=== PATIENT | male | born 1955 ===

== ENCOUNTER 2022-11-24 00:35 | Emergency (ER) | payer OTHER ==
--- OUTSIDE RECORDS SUMMARY | 2022-11-24 00:39 | XMS REPORT | Continuity of Care Document ---
:[address] [facility] t Address [address] [place] [address] [place] [id number] Care Team Providers Name Role Phone Elpidio Rodgers Primary Care Physician LOGAN POOL Attending Clinician Unavailable Doctor Unassigned, [place] Attending Clinician Unavailable GUIDO STYLES Attending Clinician Unavailable Payers Payer Name Policy Type Policy Number Effective Date Expiration Date Boni thomason [employer] MANAGED [id number] 2022 MEDICARE PPO-CLAIRE 00:00:00 [employer]ET[employer] HMO [id number] 2009 2020 00:00:00 00:00:00 Problems Condition Condition Condition Status Onset Resolution Last Treating Co mments Source Name Details Category Date Date Treatment Clinician Date Benign Benign Disease Active 2018-04 Univers prostatic prostatic 0-02 ity [place] with 00 Medical urinary urinary Branch frequency frequency Elevated Elevated Disease Active 2018-04 Unive rs PSA PSA 0-02 ity of 00:00: [place] 00 Medical Branch Allergies, Adverse Reactions, Alerts Allergy Allergy Status Severity Reaction(s) Onset Inactive Treating Comm ents Source Name Type Date Date Clinician AMOXICIL DRUG Active Rash Univers PA-POT 8- ity of CLAVULAN 00:00: [place] ATE 00 Medical Branch DOXYCYCL DRUG Active Unknown-Cmnt Un luisa INE INGREDI 8 ity of 00:00: [place] 00 Medical Branch Amoxicil Propensi Active Rash Rash and Univ ers pa-Pot ty to 8 headaches ity of Clavulan adverse 00:00: [place] ate reaction 00 [facility] [place] Doxycycl Propensi Active Unknown - 2015- Headaches Univers ine ty to See comments 12-05 ity of adverse 00:00: [place] reaction 00 [facility] Social History Social Habit Start Date Stop Date Quantity Comments Source Gender identity Universit y of [facility] Sexual orientation Univer sity [facility] Tobacco use and 2022-07-27 2022-07-27 Smokeless Universit y of exposure 00:00:00 00:00:00 tobacco non-user [facility] Alcohol intake 2022-07-27 2022-07-27 Ex-drinker [facility] 00:00:00 00:00:00 (finding) [facility] History of Social 2019-11-16 2019-11-16 Univers ity of function 00:00:00 00:00:00 [facility] Sex Ass[birth year] Universit y of 00:00:00 00:00:00 [facility] Smoking Status Start Date Stop Date Source Never smoked tobacco [facility] Medications Ordered Filled Start Stop Current Ordering Indication Dosage Frequency Signature Comments Components Source Medication Medication Date Date Medication? Clinician (SIG) Name Name Silodosin Yes 4mg Take 4 mg Uni vers (RAPAFLO) 4 4-13 by mouth ity of mg Cap 00:00: in the [place] 00 morning. Medical Branch rosuvastati Yes 10mg Take 1 Univ ers n 10 mg 2-24 tablet by ity of tablet 00:00: mouth at [place] 00 bedtime. Medical Branch betamethaso Yes MUNA EXT TO Univers ne 8-13 RASH 1 TO ity of dipropionat 00:00[place] 2 [place] 0.05 % 00 Medical cream Branch betamethaso Yes MUNA EXT TO Univers ne 8-13 RASH 1 TO ity of dipropionat 00:00[place] 2 [place] 0.05 % 00 [facility] cream Branch Immunizations Ordered Filled Immunization Date Status Comments Sourc e Immunization Name Name SARS-COV-2 COVID-19 2020-06-25 Completed Unive rsity of PFIZER VACCINE 00:00:00 [facility] SARS-COV-2 COVID-19 2020-06-25 Completed Unive rsity of PFIZER VACCINE 00:00:00 [facility] SARS-COV-2 COVID-19 2020-06-03 Completed Unive rsity of PFIZER VACCINE 00:00:00 [facility] SARS-COV-2 COVID-19 2020-06-03 Completed Unive rsity of PFIZER VACCINE 00:00:00 [facility] Procedures Procedure Date / Time Performing Clinician Source Performed INSURANCE CORRESPONDENCE 2022-10-19 05:01:00 Doctor Kofi, [facility] Name [facility] PATIENT QUESTIONNAIRE 2022-07-17 05:01:00 Doctor Kofi, [facility] Encounters Start End Encounter Admission Attending Care Care Encounter Source Date/Time Date/Time Type Type Clinicians Facility Department ID 2022-12-10 2022-12-10 Outpatient LOGAN HARDING [facility] [id number] Univers 00:00:00 00:00:00 ity [facility] 2022-12-09 2022-12-09 Outpatient LOGAN HARDING [facility] [id number] Univers 00:00:00 00:00:00 ity [facility] 2022-10-20 2022-10-20 Outpatient R [facility] [id number] Univers 00:00:00 00:00:00 ity [facility] 2022-10-19 2022-10-19 Orders Doctor RAND [id number] Univers 00:00:00 00:00:00 Only Unassigned, [place] [id number] ity [facility] [id number] Attila as [id number] [address] 2022-10-14 2022-10-14 Outpatient LOGAN HARDING [facility] [id number] Univers 00:00:00 00:00:00 ity [facility] 2022-10-14 2022-10-14 Outpatient LOGAN HARDING [facility] [id number] Univers 00:00:00 00:00:00 ity [facility] 2022-07-23 2022-07-23 Outpatient LOGAN HARDING [facility] [id number] Univers 07:51:46 13:54:08 ity [facility] 2022-07-17 2022-07-17 Orders Doctor KEYONA [id number] Univers 00:00:00 00:00:00 Only Unassigned, OUSMANE [id number] ity of [place] [facility] [id number] Attila as [phone] [address] 2020-06-24 2020-06-24 Outpatient [facility] [id number] Univers 09:10:00 09:10:00 [id number] ity [facility] 2020-06-24 2020-06-24 Outpatient [facility] [id number] Univers 09:10:00 09:10:00 GUIDO [facility] 2020-06-03 2020-06-03 Outpatient [facility] [id number] Univers 08:40:00 08:40:00 [id number] [facility] 2020-06-03 2020-06-03 Outpatient [facility] [id number] Univers 08:40:00 08:40:00 GUIDO [facility] Results This patient has no known results.
[2022-11-24 02:21] LABS: Absolute Lymphocytes (CBC) 1.8 K/uL (0.7-4.9); Hematocrit 44.3 % (39.6-49.0); Lymphocytes % 19.6 % (15.3-44.8); MCV 94.4 fL (80-100); MPV 8.7 fL (7.6-11.3); Platelets 186 thou/uL (152-406); Protime INR 1.01; RBC Red Blood Cell Count 4.69 M/uL (4.33-5.43)
[2022-11-24] MEDS ORDERED: MORPHINE 4 MG/ML SYR ONE ×2 (02:30→03:09)
[2022-11-24] MEDS ORDERED: ONDANSETRON 4 MG/2 ML VIAL ONE ×2 (02:30→03:09)
[2022-11-24] MEDS ORDERED: FAMOTIDINE 20 MG/2 ML VIAL IV ONE (02:30)
[2022-11-24] MEDS ORDERED: PANTOPRAZOLE 40 MG INJ ONE (02:30)
[2022-11-24] MEDS ORDERED: NA CHLORIDE 0.9% 1,000 ML ONE (02:31)
[2022-11-24] MEDS ORDERED: TENECTEPLASE 50 MG/10 ML VIAL IV ONE (03:28)
[2022-11-24] MEDS ORDERED: ASPIRIN 81 MG CHEWABLE TABLET ONE (03:37)
[2022-11-24 03:39] LABS: ALT/SGPT 23 U/L (16-61); AST/SGOT 21 U/L (15-37); Albumin 3.6 g/dL (3.4-5.0); Alkaline Phosphatase 55 U/L (45-117); BUN Blood Urea Nitrogen 14 mg/dL (7-18); Bicarbonate 26 mEq/L (21-32); Bilirubin Total 0.5 mg/dL (0.2-1.0); Glomerular Filtration Rate 91 ml/min (=/>90); Glucose Level 128 mg/dL (74-106); Lipase 34 U/L (13-75); Potassium 3.4 mEq/L (3.5-5.1); Protein, Total 6.5 g/dL (6.4-8.2); Sodium Level 139 mEq/L (136-145)
[2022-11-24 03:41] LABS: Bilirubin Direct < 0.1 mg/dL (0-0.2)
[2022-11-24 03:42] LABS: Bilirubin Indirect, Calculated ND mg/dL (0.2-0.8)
[2022-11-24] MEDS ORDERED: HEPARIN 5000 UNIT/ML 1 ML VIAL ONE (03:42)
--- NOTE | 2022-11-24 03:42 | EDPHYS ---
Physician Documentation [facility] Name: Jose Aaron Age: 67 yrs Sex: Male : 1955 Arrival Date: 11/24/2022 Time: 00:35 Bed 4 Private MD: ED Physician Raimundo Tomas HPI: 11/24 00:46 This 67 yrs old Male presents to ER via Unassigned with complaints of Back sp4 Pain. 03:00 61-year-old male with past medical history of hyperlipidemia presents with 1 week daily sp4 chest pain with radiation to the back also upper back pain in relationship to his chest pain. Patient denied exertional chest pain and shortness of breath. But reported that he has associated nausea and dry heaving. Patient denied postprandial pain denied acid reflux. Primary care physician is Dr. Ana Maria Magallanes . Patient does not have history of prior stents or other cardiac problems. Historical: - Allergies: 02:45 Augmentin; vc1 02:45 Doxycycline; vc1 02:45 red wasps; vc1 - PMHx: 02:45 Hyperlipidemia; vc1 - PSHx: 02:45 None; vc1 - Immunization history:: Client reports receiving the 2nd dose of the Covid vaccine. - Social history:: Smoking status: Patient denies any tobacco usage or history of. - Family history:: not pertinent. ROS: 03:00 Constitutional: Negative for fever, chills, and weight loss, Eyes: Negative for injury, sp4 pain, redness, and discharge, Cardiovascular: Negative for palpitations, and edema, positive for chest pain with radiation to the back Back: Positive for upper back pain with radiation into the chest 03:00 All other systems are negative. Exam: 03:00 Constitutional: This is a well developed, well nourished patient who is awake, alert, sp4 and in no acute distress. Uncomfortable appearing male but nontoxic Head/Face: Normocephalic, atraumatic. Eyes: Pupils equal round and reactive to light, extra-ocular motions intact. Lids and lashes normal. Conjunctiva and sclera are not injected. Cornea within normal limits. Periorbital areas with no swelling, redness, or edema. ENT: Nares patent. No nasal discharge, no septal abnormalities noted. Tympanic membranes are normal and external auditory canals are clear. Oropharynx with no redness, swelling, or masses, exudates, or evidence of obstruction, uvula midline. Mucous membranes moist. Neck: Trachea midline, no thyromegaly or masses palpated, and no cervical lymphadenopathy. Supple, full range of motion without nuchal rigidity, or vertebral point tenderness. Chest/axilla: Normal chest wall appearance and motion. Nontender with no deformity. No lesions are appreciated. Cardiovascular: Regular rate and rhythm with a normal S1 and S2. No gallops, murmurs, or rubs. Normal PMI, no JVD. No pulse deficits. Respiratory: Lungs have equal breath sounds bilaterally, clear to auscultation and percussion. No rales, rhonchi or wheezes noted. No increased work of breathing, no retractions or nasal flaring. Abdomen/GI: Soft, non-tender, with normal bowel sounds. No distension or tympany. No guarding or rebound. No evidence of tenderness throughout. Back: No spinal tenderness. No costovertebral tenderness. Skin: Warm, dry with normal turgor. Normal color with no rashes, no lesions, and no evidence of cellulitis. MS/ Extremity: Pulses equal, no cyanosis. Neurovascular intact. Full, normal range of motion. Neuro: Awake and alert, GCS 15, oriented to person, place, time, and situation. Cranial nerves II-XII grossly intact. Motor strength 5/5 in all extremities. Sensory grossly intact. Psych: Awake, alert, with orientation to person, place and time. Behavior, mood, and affect are within normal limits 03:00 ECG was reviewed by the Attending Physician. EKG time 0 145, there is normal sinus sp4 rhythm at rate of 71, no ST depression, there is inverted T waves in leads III and aVF, there is [address] elevation in V2 but no contiguous ST elevations, there is no ectopy, normal intervals 03:17 Repeat EKG at 0 312 -sinus rhythm at 72 bpm, ST depression leads III and aVF, ST sp4 elevation V2 and V3 indicative of septal to anterior UT. No ectopy, normal intervals, normal axis Vital Signs: 02:01 BP 133 / 96; Pulse 72; Resp 19; Temp 98.6(O); Pulse Ox 99% on R/A; Weight 86.18 kg; rv1 Height 5 ft. 9 in. ; Pain 10/10; 03:21 Weight 85.8 kg; vc1 03:28 BP 150 / 104; Pulse 94; Resp 19; Pulse Ox 94% on R/A; kl 03:28 Pain 8/10; kl 03:21 Body Mass Index 27.93 (85.80 kg, 175.26 cm) vc1 02:01 Pain Scale: Adult rv1 03:28 Pain Scale: Adult kl MDM: 02:57 Patient medically screened. sp4 03:37 Differential diagnosis: Abdominal Aortic Aneurysm Cholelithiasis chronic back pain, sp4 Neoplasm Osteoporosis Peptic Ulcer spinal injury, sprain. Data reviewed: vital signs, nurses notes, old medical records, lab test result(s), amylase and lipase, cardiac enzymes, CBC, electrolytes, hepatic panel, urinalysis, EKG, radiologic studies, plain films. 03:39 Consideration of Admission/Observation Escalation of care including sp4 admission/observation considered. Management of patient was discussed with the following: Administrative Professional: Osmar DONAHUE with cardiology -radiation safety officer has accepted patient to [facility]. ED course: Patient initial EKG revealed suspicion for evolving heart attack with ST elevation in V2, patient repeat EKG revealed ST elevation in V2 V3 with ST depression in II, III and aVF indicative of anterior UT. Patient was given emergent tenecteplase.. ED course: Patient was given p.o. aspirin, Plavix 600 mg loading dose, heparin bolus and infusion. Patient was then discussed with radiation safety officer Dr. Prasad who has accepted patient to [facility]. . ED course: Patient is stable for transport with aeromedical transport. Blood pressure stable.. 04:07 ED course: Troponin is 1442, consistent with acute coronary syndrome. 4 11/24 01:03 Order name: Basic Metabolic Panel; Complete Time: 04:06 sp4 11/24 01:03 Order name: CBC with Diff; Complete Time: 02:57 sp4 11/24 01:03 Order name: LFT's; Complete Time: 04:06 sp4 11/24 01:03 Order name: Magnesium; Complete Time: 04:06 sp4 11/24 01:03 Order name: NT PRO-BNP; Complete Time: 04:06 sp4 11/24 01:03 Order name: PT-INR; Complete Time: 02:57 sp4 11/24 01:03 Order name: Troponin HS; Complete Time: 04:06 11/24 01:03 Order name: Lipase; Complete Time: 04:06 11/24 01:03 Order name: EKG; Complete Time: 01:03 11/24 01:03 Order name: Cardiac monitoring; Complete Time: :11/24 01:03 Order name: EKG - Nurse/Tech; Complete Time: :11/24 01:03 Order name: IV Saline Lock; Complete Time: :11/24 01:03 Order name: Labs collected and sent; Complete Time: :11/24 01:03 Order name: O2 Per Protocol; Complete Time: :11/24 01:03 Order name: O2 Sat Monitoring; Complete Time: EC:17 Rate is 72 beats/min. Rhythm is regular, Sinus Rhythm. QRS [place] is Normal. AR interval sp4 is normal. QRS interval is normal. ST Segment is elevated in leads V2, V3. ST Segment is depressed in leads II, III, aVF. Clinical impression: Anterior UT - acute. Interpreted by me. Administered Medications: 02:25 Drug: morphine IVP or IV 4 mg Route: IVP; Infused Over: 4 mins; Site: right antecubital;vc1 02:25 Drug: Pantoprazole IVP 40 mg Route: IVP; Site: right antecubital; vc1 02:25 Drug: Famotidine IVP 20 mg Route: IVP; Site: right antecubital; vc1 02:25 Drug: Ondansetron IVP 4 mg Route: IVP; Site: right antecubital; vc1 02:50 Drug: NS 0.9% IV 1000 ml Route: IV; Rate: 125 ml/hr; Site: right antecubital; vc1 03:05 Drug: morphine IVP or IV 4 mg Route: IVP; Infused Over: 4 mins; Site: right antecubital;vc1 03:05 Drug: Ondansetron IVP 4 mg Route: IVP; Site: right antecubital; vc1 03:25 Drug: Tenecteplase IV 45 mg {Co-Signature: jb4 (Chencho Duncan RN).} Route: IV; Rate: kl calculated rate; Site: right antecubital; 03:28 Drug: Aspirin PO Chewable Tablet 324 mg Route: PO; jb4 03:35 Drug: HEParin IV 4000 units {Co-Signature: lg3 (Daina Eric RN).} Route: IV; Rate: kl bolus; Site: right antecubital; 03:35 Drug: Heparin ([place] Drip) - (D5W IV 500 ml, [place] [address] units) 12 units/kg/hr kl {Co-Signature: lg3 (Daina Eric RN).} Route: IV; Rate: calculated rate; Site: right antecubital; 03:42 Drug: Clopidogrel PO 600 mg Route: PO; kl Disposition Summary: 11/24/22 03:42 Transfer Ordered Transfer Location: [facility] sp4 Reason: Higher level of care sp4 Condition: Stable sp4 Problem: new sp4 Symptoms: are unchanged sp4 Accepting Physician: Osmar DONAHUE with Cardiology(11/24/22 04:08) kl Diagnosis - ST elevation (STEMI) myocardial infarction involving Left Main Cornary Artery sp4 - ST elevation (STEMI) myocardial infarction involving other coronary artery of sp4 anterior wall - Acute coronary syndrome sp4 Discharge Instructions: - Discharge Summary Sheet rv1 Forms: - SBAR form rv1 - Medication Reconciliation Form sp4 Critical care time excluding procedures: 03:44 Critical care time: Bedside Care: 36 minutes, Consultation: 12 minutes, Family sp4 Intervention: 12 minutes. Total time: 60 minutes Signatures: Dispatcher [employer] EDMS Judy Billings RN RN kl Attema, Lee, LEATHER CRAFTER-C LEATHER CRAFTER-Cla1 Chencho Duncan RN RN jb4 Paulette Mendoza RN RN Raimundo Rodriguez MD MD sp4 Chencho Duncan RN, Lacie RN lg3 Corrections: (The following items were deleted from the chart) 03:45 01:02 Angio Aorta For Dissection+CT.RAD.BRZ ordered. EDMS EDMS 04:08 03:42 Osmar DONAHUE with Cardiology sp4 kl
--- NOTE | 2022-11-24 03:42 | ER ---
Nurse's Notes [facility] Name: Jose Aaron Age: 67 yrs Sex: Male : 1955 Arrival Date: 11/24/2022 Time: 00:35 Bed 4 Private MD: Diagnosis: ST elevation (STEMI) myocardial infarction involving Left Main Cornary Artery;ST elevation (STEMI) myocardial infarction involving other coronary artery of anterior wall;Acute coronary syndrome Presentation: 11/24 01:13 Chief complaint: Patient states: My back has been hurting for 10 days. It starts in my vc1 upper back and moves to my chest. I went to pull my overall straps over and my shoulders and felt the pain. Coronavirus screen: Vaccine status: Patient reports receiving the 2nd dose of the covid vaccine. plus one booster; [facility] Client denies travel out of the [place] in the last 14 days. At this time, the client does not indicate any symptoms associated with coronavirus-19. 01:13 Method Of Arrival: Ambulatory vc1 01:13 Ebola Screen: Patient negative for fever greater than or equal to 101.5 degrees vc1 Fahrenheit, and additional compatible Ebola Virus Disease symptoms Patient denies exposure to infectious person. Patient denies travel to an Ebola-affected area in the 21 days before illness onset. No symptoms or risks identified at this time. Initial Sepsis Screen: Does the patient meet any 2 criteria? No. Patient's initial sepsis screen is negative. Does the patient have a suspected source of infection? No. Patient's initial sepsis screen is negative. Risk Assessment: Do you want to hurt yourself or someone else? Patient reports no desire to harm self or others. Onset of symptoms was November 14, 2022. 01:13 Acuity: ANA CRISTINA 3 vc1 Triage Assessment: 02:47 General: Appears in no apparent distress. comfortable, Behavior is calm, cooperative, vc1 appropriate for age. Pain: Complains of pain in left scapular area and right scapular area Pain radiates to right supraclavicular area, right clavicle, left supraclavicular area, left clavicle, anterior aspect of right upper chest and anterior aspect of left upper chest Pain currently is 10 out of 10 on a pain scale. Quality of pain is described as sharp, Pain began suddenly, 10 days ago. EENT: No deficits noted. No signs and/or symptoms were reported regarding the EENT system. Neuro: Level of Consciousness is awake, alert, obeys commands, Oriented to person, place, time, situation, Appropriate for age. Cardiovascular: No deficits noted. Respiratory: Airway is patent Respiratory effort is even, unlabored, Respiratory pattern is regular, symmetrical. GI: No deficits noted. No signs and/or symptoms were reported involving the gastrointestinal system. : No deficits noted. No signs and/or symptoms were reported regarding the genitourinary system. Derm: No deficits noted. No signs and/or symptoms reported regarding the dermatologic system. Musculoskeletal: Circulation, motion, and sensation intact. Historical: - Allergies: 02:45 Augmentin; vc1 02:45 Doxycycline; vc1 02:45 red wasps; vc1 - PMHx: 02:45 Hyperlipidemia; vc1 - PSHx: 02:45 None; vc1 - Immunization history:: Client reports receiving the 2nd dose of the Covid vaccine. - Social history:: Smoking status: Patient denies any tobacco usage or history of. - Family history:: not pertinent. Screenin:[address] [facility] ED Fall Risk Assessment (Adult) History of falling in the last 3 months, vc1 including since admission No falls in past 3 months (0 pts) Confusion or Disorientation No (0 pts) Intoxicated or Sedated No (0 pts) Impaired Gait No (0 pts) Mobility Assist Device Used No (0 pt) Altered Elimination No (0 pt) Score/Fall Risk Level 0 - 2 = Low Risk Oriented to surroundings, Maintained a safe environment, Educated pt \T\ family on fall prevention, incl call for assistance when getting out of bed. Abuse screen: Denies threats or abuse. Nutritional screening: No deficits noted. Tuberculosis screening: No symptoms or risk factors identified. Assessment: 03:30 Reassessment:. kl 03:39 Reassessment: Pt currently reporting chest pain. Sitting up right in bed. Respirations jb4 are even and unlabored. Both IV sites remain patent. IV fluids infusing without issue to RAC. Vital Signs: 02:01 BP 133 / 96; Pulse 72; Resp 19; Temp 98.6(O); Pulse Ox 99% on R/A; Weight 86.18 kg; rv1 Height 5 ft. 9 in. ; Pain 10/10; 03:21 Weight 85.8 kg; vc1 03:28 BP 150 / 104; Pulse 94; Resp 19; Pulse Ox 94% on R/A; kl 03:28 Pain 8/10; kl 03:21 Body Mass Index 27.93 (85.80 kg, 175.26 cm) vc1 02:01 Pain Scale: Adult rv1 03:28 Pain Scale: Adult kl ED Course: 00:41 Patient arrived in ED. kj1 00:46 Raimundo Tomas MD is Attending Physician. sp4 01:56 Inserted saline lock: 20 gauge in right antecubital area, using aseptic technique. rv1 Blood collected. 01:56 Lipase Sent. rv1 01:56 Basic Metabolic Panel Sent. rv1 01:56 CBC with Diff Sent. rv1 01:56 LFT's Sent. rv1 01:56 Magnesium Sent. rv1 01:56 NT PRO-BNP Sent. rv1 01:56 PT-INR Sent. rv1 01:56 Troponin HS Sent. rv1 02:22 Paulette Mendoza RN is Primary Nurse. vc1 02:23 Troponin HS Sent. rv1 02:23 NT PRO-BNP Sent. rv1 02:23 Magnesium Sent. rv1 02:23 LFT's Sent. rv1 02:23 CBC with Diff Sent. rv1 02:23 Basic Metabolic Panel Sent. rv1 02:23 Lipase Sent. rv1 02:45 Triage completed. vc1 02:49 Arm band placed on left wrist. vc1 03:10 Inserted saline lock: 18 gauge in left antecubital area, using aseptic technique. jb4 03:20 Inserted saline lock: 20 gauge in left antecubital area, using aseptic technique. kl 04:08 No provider procedures requiring assistance completed. Patient transferred, IV remains kl in place. Administered Medications: 02:25 Drug: morphine IVP or IV 4 mg Route: IVP; Infused Over: 4 mins; Site: right antecubital;vc1 02:25 Drug: Pantoprazole IVP 40 mg Route: IVP; Site: right antecubital; vc1 02:25 Drug: Famotidine IVP 20 mg Route: IVP; Site: right antecubital; vc1 02:25 Drug: Ondansetron IVP 4 mg Route: IVP; Site: right antecubital; vc1 02:50 Drug: NS 0.9% IV 1000 ml Route: IV; Rate: 125 ml/hr; Site: right antecubital; vc1 03:05 Drug: morphine IVP or IV 4 mg Route: IVP; Infused Over: 4 mins; Site: right antecubital;vc1 03:05 Drug: Ondansetron IVP 4 mg Route: IVP; Site: right antecubital; vc1 03:25 Drug: Tenecteplase IV 45 mg {Co-Signature: jb4 (Chencho Duncan RN).} Route: IV; Rate: kl calculated rate; Site: right antecubital; 03:28 Drug: Aspirin PO Chewable Tablet 324 mg Route: PO; jb4 03:35 Drug: HEParin IV 4000 units {Co-Signature: lg3 (Daina Eric RN).} Route: IV; Rate: kl bolus; Site: right antecubital; 03:35 Drug: Heparin ([place] Drip) - (D5W IV 500 ml, [place] [address] units) 12 units/kg/hr kl {Co-Signature: lg3 (Daina Eric RN).} Route: IV; Rate: calculated rate; Site: right antecubital; 03:42 Drug: Clopidogrel PO 600 mg Route: PO; kl Medication: 04:08 VIS not applicable for this client. kl Outcome: 03:42 ER care complete, transfer ordered by . ashu 04:07 Transferred by helicopter to [facility]. kl 04:07 critical 04:07 Instructed on the need for transfer, Demonstrated understanding of instructions. 04:08 Patient left the ED. kl Signatures: Judy Billings RN RN kl Bryson, James, RN RN jb4 Jackson, Kandis kj1 Paulette Mendoza RN RN 1 Rima Beltre Sergey, MD MD sp4 Bryson, James RN jb4 Gibson, Lacie RN lg3 Corrections: (The following items were deleted from the chart) 02:51 02:50 Famotidine IVP 20 mg IVP in right antecubital vc1 vc1
[2022-11-24] MEDS ORDERED: CLOPIDOGREL 75 MG TABLET ONE (03:43)
[2022-11-24] MEDS ORDERED: HEPARIN/D5W 25,000 UNIT/500 ML BAG IV ONE (03:43)
[2022-11-24 03:55] LABS: NT PRO-BNP 691 pg/mL (<125)
[2022-11-24 03:58] LABS: Troponin High Sensitivity 1442.1 pg/mL (<58.9)
[2022-11-24 04:40] VITALS: TEMP 98.6
[2022-11-24 04:41] VITALS: BP 150/104; O2SAT 94
--- NOTE | 2022-11-24 17:01 | EKG ---
Test Date: 2022-11-24 Test Time: 03:12:05 Vault Person: WHITNEY MEASUREMENT RESULTS: Intervals: Rate: 72 HI: 132 QRSD: 88 QT: 368 QTc: 402 [place]: P: 54 HI: 132 QRS: 54 T: -29 INTERPRETIVE STATEMENTS: Normal sinus rhythm Anterior infarct, possibly acute T wave abnormality, consider inferior ischemia ACUTE PA / STEMI Abnormal ECG Compared to ECG 11/24/2022 01:45:58 T-wave abnormality now present ST (T wave) deviation no longer present Myocardial infarct finding still present Possible ischemia still present Electronically Signed On 11-24-22 17:00:09 CDT by Marty Maldonado
--- NOTE | 2022-11-24 17:01 | EKG ---
Test Date: 2022-11-24 Test Time: 01:45:58 Separating Machine Operator: RV MEASUREMENT RESULTS: Intervals: Rate: 71 KS: 136 QRSD: 90 QT: 374 QTc: 406 Volin: P: 78 KS: 136 QRS: 82 T: -10 INTERPRETIVE STATEMENTS: Normal sinus rhythm Septal infarct, age undetermined ST & T wave abnormality, consider inferior ischemia Abnormal ECG Compared to ECG 06/08/2003 09:18:00 Myocardial infarct finding now present ST (T wave) deviation now present Possible ischemia now present Sinus bradycardia no longer present Short KS interval no longer present Electronically Signed On 11-24-22 17:00:56 CDT by Marty Maldonado
== END 2022-11-24 04:08 | disposition short-term general hospital (02) ==
LOC: ER 00:35
DX: I21.01 ST elevation (STEMI) myocardial infarction involving left main coronary artery (principal); I21.09 ST elevation (STEMI) myocardial infarction involving other coronary artery of anterior wall; I24.9 Acute ischemic heart disease, unspecified; E78.5 Hyperlipidemia, unspecified; Z88.1 Allergy status to other antibiotic agents; Z91.038 Other insect allergy status
CPT/HCPCS: 93005 ×2; 85025; 80048; 36415; 83735; 85610; 80076; 84484; 83690; 83880; J1644; J3101; C9113; J2405 ×2; J7030; 92977; 96374; 96375; 99285